=== PATIENT | female | born 1980 | race Caucasian/White ===

== ENCOUNTER 2017-11-29 16:07 | Emergency (ER) | payer SELFPAY ==
[2017-11-29 16:21] VITALS: BP 131/84; TEMP 98.3; O2SAT 98
--- NOTE | 2017-11-29 16:35 | ED.PDOC ---
History of Present Illness - General Chief Complaint: Skin/Abrasion/Tear Stated Complaint: itching, redness and swelling to skin Time Seen by Provider: 11/29/17 16:09 Source: patient Exam Limitations: no limitations - History of Present Illness Initial Comments: the patient is a 37-year-old female presenting to emergency room secondary to what appears to be a significant atopic dermatitis flare. She does have a history of asthma. Her asthma has been flaring a little bit but she appears to be well-controlled today. She reports that her skin symptoms have flared up over the last week. She reports that this happens 3 or 4 times a year and she does tend require oral steroids to suppress it. No blistering. No oral lesions. No chest pain. She is not taking any new medications. She has been taking hydroxyzine periodically. Timing/Duration: unsure, 1 week Severity: moderate Improving Factors: nothing Worsening Factors: nothing Associated Symptoms: cough Allergies/Adverse Reactions: Allergies Sulfa Antibiotics Allergy (Unknown, Verified 11/29/17 16:21) Penicillins Allergy (Verified 11/29/17 16:21) Home Medications: Ambulatory Orders hydrOXYzine HCl [Atarax] 25 mg PO TID PRN #15 tab 06/19/15 predniSONE 60 mg PO DAILY #15 tab 06/19/15 Montelukast [Singulair] 10 mg PO DAILY #14 tab 11/29/17 predniSONE [Prednisone] 40 mg PO DAILY #10 tab 11/29/17 Review of Systems - Review of Systems Constitutional: States: no symptoms reported, malaise EENTM: States: nose congestion - mild Respiratory: States: cough, short of breath - mild Cardiology: States: no symptoms reported Gastrointestinal/Abdominal: States: no symptoms reported Genitourinary: States: no symptoms reported Musculoskeletal: States: no symptoms reported Skin: States: see HPI Neurological: States: no symptoms reported Endocrine: States: no symptoms reported All other Systems: No Change from Baseline Past Medical History (General) - Patient Medical History Hx Asthma: Yes Hx Diabetes: No Surgical History: other - Vaccination History Hx Tetanus, Diphtheria Vaccination: Yes Hx Influenza Vaccination: No Hx Pneumococcal Vaccination: No - Social History Hx Tobacco Use: No Hx Alcohol Use: No Hx Substance Use: No Hx Substance Use Treatment: No Hx Depression: No - Female History Patient is a Female of Child Bearing Age (10 -59 yrs old): No Patient : No Family Medical History - Family History Mother Family History: No Known Living Status: Still Living Physical Exam - Physical Exam General Appearance: Alert, No apparent distress Eye Exam: bilateral normal Ears, Nose, Throat: hearing grossly normal, normal ENT inspection, normal pharynx, other - the patient does have significant seborrhea Neck: full range of motion, supple Respiratory: lungs clear, normal breath sounds, no respiratory distress, no accessory muscle use Cardiovascular/Chest: normal peripheral pulses, regular rate, rhythm, no edema Peripheral Pulses: radial,right: 2+, radial,left: 2+ Gastrointestinal/Abdominal: non tender, soft Rectal Exam: deferred Back Exam: no CVA tenderness, no vertebral tenderness Extremity: normal range of motion, non-tender, no pedal edema, normal capillary refill 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 She does have some areas of dermatographia. Comments: Vital Signs - 24 hr 11/29/17 16:13 Temperature 98.3 F Pulse Rate [ 77 pulse ox] Respiratory 20 Rate Blood Pressure 131/84 [Left Arm] O2 Sat by Pulse 98 Oximetry Progress - Progress Progress: 11/29/17 16:36 the patient is a 37-year-old female presenting with a significant atopic dermatitis flare with some background asthma. The patient is going to be placed on prednisone for the next 5 days as well as Singulair for the next 2 weeks. She can strip picker Zantac and take it twice daily for the next month. Additionally the patient can use as needed oral Benadryl. She needs to keep herself well hydrated. She can continue to use Eucerin cream to help prevent further irritation. Looking back at her lab work from 2014, she does have some significant eosinophilia. She does need follow-up with her primary care doctor later this week for reevaluation and consider additional workup for etiologies of eosinophilia as directed treatment to certain sources can reduce complications such as this. ER warnings were given for any significant worsening. Departure - Departure Clinical Impression: Asthma exacerbation Atopic dermatitis Qualifiers: Atopic dermatitis type: unspecified Qualified Code(s): L20.9 - Atopic dermatitis, unspecified Disposition: Discharge to Home or Self Care Condition: Fair Departure Forms: ED Discharge - Pt. Copy, Patient Portal Self Enrollment Instructions: DI for Atopic Dermatitis - Adult Diet: regular diet Activity: increase activity as tolerated Referrals: Mary Gardner NP [Primary Care Provider] - 1-5 Days Prescriptions: Montelukast [Singulair] 10 mg PO DAILY #14 tab predniSONE [Prednisone] 40 mg PO DAILY #10 tab Home Medications: Ambulatory Orders hydrOXYzine HCl [Atarax] 25 mg PO TID PRN #15 tab 06/19/15 predniSONE 60 mg PO DAILY #15 tab 06/19/15 Montelukast [Singulair] 10 mg PO DAILY #14 tab 11/29/17 predniSONE [Prednisone] 40 mg PO DAILY #10 tab 11/29/17 Additional Instructions: the patient is a 37-year-old female presenting with a significant atopic dermatitis flare with some background asthma. The patient is going to be placed on prednisone for the next 5 days as well as Singulair for the next 2 weeks. She can strip picker Zantac and take it twice daily for the next month. Additionally the patient can use as needed oral Benadryl. She needs to keep herself well hydrated. She can continue to use Eucerin cream to help prevent further irritation. Looking back at her lab work from 2015, she does have some significant eosinophilia. She does need follow-up with her primary care doctor later this week for reevaluation and consider additional workup for etiologies of eosinophilia as directed treatment to certain sources can reduce complications such as this. ER warnings were given for any significant worsening.
[2017-11-29] MEDS: diphenhydrAMINE HCL 25 MG CAP PO ONE (16:46)
[2017-11-29] MEDS: MONTELUKAST 10 MG TAB PO ONE (16:46)
[2017-11-29] MEDS: predniSONE 20 MG TAB PO ONE (16:47)
== END 2017-11-29 16:54 | disposition home or self-care (01) ==
LOC: ER 16:07
DX: L20.9 Atopic dermatitis, unspecified (principal); J45.901 Unspecified asthma with (acute) exacerbation
CPT/HCPCS: J7512; Q0163

== ENCOUNTER 2018-06-04 13:27 | Emergency (ER) | payer SELFPAY ==
[2018-06-04 13:49] VITALS: TEMP 98.2
--- NOTE | 2018-06-04 14:34 | CT ---
PROCEDURE: Abdoment/Pelvis w/o Contrast HISTORY: left flank pain Indication: Same as above Comparison: None Technique: CT of the abdomen and pelvis was done without intravenous contrast. Images were obtained from the lung base to the level of the pubic symphysis in axial plane, followed by orthogonal sagittal and coronal reconstruction. Oral contrast was not given for the study. This exam was performed according to our departmental dose-optimization program, which includes automated exposure control, adjustment of the mA and/or KV according to the patient's size and/or use of iterative reconstruction technique. FINDINGS: Images through the lung bases do not show any focal infiltrates or pleural effusions. There is left-sided hydroureteronephrosis to the level of 6 mm calculus seen in the distal left pelvic ureter, approximately 1 cm from the left ureterovesical junction. There is no nephrolithiasis on either side. There is no right-sided hydroureteronephrosis There is a small hiatal hernia. Calcifications in the left adrenal gland may be as a result of lipoma or granuloma The liver, gallbladder, pancreas, spleen and the right adrenal gland appear unremarkable, given the limitation of lack of intravenous contrast. The urinary bladder is unremarkable, without any evidence of wall thickening, calculi or filling defects. The small bowel appears unremarkable, without any evidence of small bowel obstruction or bowel wall thickening. There is no CT evidence of acute appendicitis, pericecal inflammatory change or ileocecal mesenteric adenitis. The ileocecal junction appears unremarkable. There is no CT evidence of acute colonic diverticulitis or colitis or large bowel obstruction. There is large bowel diverticulosis There is no pathological lymphadenopathy in the retroperitoneum or in the pelvic region. Multiple reactive lymph nodes are seen in the bilateral inguinal region There is no evidence of free fluid or free air in the abdomen or the pelvic region. There is no clinically significant abdominal aortic aneurysm. There is no clinically significant inguinal or ventral hernia. The visualized lumbar spine significant degenerative change at L2/L3 level. The paravertebral soft tissues are unremarkable. The remainder of the pelvic structures are unremarkable. IMPRESSION: There is left-sided hydroureteronephrosis to the level of 6 mm calculus seen in the distal left pelvic ureter, approximately 1 cm from the left ureterovesical junction. There is a small hiatal hernia. Calcifications in the left adrenal gland may be as a result of lipoma or granuloma Multiple reactive lymph nodes are seen in the bilateral inguinal region Electronically signed by: Chip Pride MD 06/04/2018 2:33 PM CDT Workstation: [id number]
[2018-06-04] MEDS ORDERED: ONDANSETRON ODT 8 MG TAB ONE (14:50)
[2018-06-04] MEDS ORDERED: ONDANSETRON ODT 8 MG TAB SL ONE (14:52)
[2018-06-04] MEDS ORDERED: KETOROLAC TROMETHAMINE INJ 30 MG/ML VIAL IM ONE (15:04)
[2018-06-04] MEDS ORDERED: HYDROmorphone HCL INJ 2 MG/ML VIAL IM ONE (15:04)
--- NOTE | 2018-06-04 15:09 | ED.PDOC ---
History of Present Illness - General Chief Complaint: Problem Stated Complaint: left flank pain Time Seen by Provider: 06/04/18 13:43 Source: patient Exam Limitations: no limitations - History of Present Illness Initial Comments: Left flank pain started yesterday similar to previous stone pain. No gross hematuria, fever, dysuria, vaginal discharge. LMP 05/28 not 04/27. Timing/Duration: yesterday Quality: severe Onset Location: left flank Radiation: back Activites at Onset: none Prior abdominal problems: similar symptoms Improving Factors: nothing Worsening Factors: nothing Associated Symptoms: nausea/vomiting Allergies/Adverse Reactions: Allergies Sulfa Antibiotics Allergy (Unknown, Verified 11/29/17 16:21) Penicillins Allergy (Verified 11/29/17 16:21) Home Medications: Ambulatory Orders Acetaminophen W/ Codeine [Tylenol w/Codeine 300-30 mg] 1 tab PO Q4HR #20 tab Ciprofloxacin [Cipro] 250 mg PO Q12H 7 Days #14 tablet 05/11/18 Promethazine Tab [Phenergan Tablet] 25 mg PO .Q4H PRN #10 tab 05/11/18 Tamsulosin HCl [Flomax] 0.4 mg PO DAILY #5 cap 05/11/18 Acetamin W/Cod #3 Tab [Tylenol w/CODEINE #3] 1 ea PO TID #14 tab 05/15/18 Tamsulosin [Flomax] 0.4 mg PO QDPC #7 cap 05/15/18 Acetaminophen W/ Codeine [Tylenol W/ CODEINE #3] 2 ea PO Q8HRS PRN 5 Days #15 06/04/18 Review of Systems - Review of Systems Constitutional: States: no symptoms reported, see HPI Respiratory: States: no symptoms reported Cardiology: States: no symptoms reported Gastrointestinal/Abdominal: States: see HPI Genitourinary: States: see HPI Musculoskeletal: States: see HPI, back pain Skin: States: no symptoms reported Neurological: States: headache Past Medical History (General) - Patient Medical History Hx Stroke: Yes Hx Asthma: Yes Hx Congestive Heart Failure: No Hx Diabetes: No - Vaccination History Hx Tetanus, Diphtheria Vaccination: Yes Hx Influenza Vaccination: No Hx Pneumococcal Vaccination: No - Social History Hx Tobacco Use: No Hx Alcohol Use: No Hx Substance Use: No Hx Substance Use Treatment: No Hx Depression: No Hx Physical Abuse: No Hx Emotional Abuse: No - Female History Patient is a Female of Child Bearing Age (10 -59 yrs old): Yes Hx Last Menstrual Period: 04/27/18 - [id number] Patient : No Family Medical History - Family History Mother Family History: No Known Living Status: Still Living Physical Exam - Physical Exam General Appearance: Alert, No apparent distress, Other - uncomfortable Eyes, Ears, Nose, Throat Exam: normal ENT inspection Neck: supple, normal inspection Cardiovascular/Respiratory: no respiratory distress Gastrointestinal/Abdominal: non tender, soft, no organomegaly Back Exam: normal inspection, no vertebral tenderness, CVA tenderness (L) Extremity: normal inspection Neurologic: alert, normal mood/affect, oriented x 3 Skin Exam: normal color, warm/dry Progress - Progress Progress: 06/05/18 03:12 Even though large stone appeared close to the UVJ. No signs of complicated stone. Symptomatic therapy & f/u with her PCP. Has not seen a urologist for a previous stone. - EKG/XRAY/CT CT Ordered: Yes - 6 mm stone distal left ureter Departure - Departure Clinical Impression: Ureteral calculus, left Time of Disposition: 15:06 Disposition: Discharge to Home or Self Care Condition: Good Departure Forms: ED Discharge - Pt. Copy, Patient Portal Self Enrollment Instructions: DI for Kidney Stones Referrals: Mary Gardner NP [Primary Care Provider] - 06/06/18 Prescriptions: Acetaminophen W/ Codeine [Tylenol W/ CODEINE #3] 2 ea PO Q8HRS PRN 5 Days #15 PRN Reason: Moderate Pain Home Medications: Ambulatory Orders Acetaminophen W/ Codeine [Tylenol w/Codeine 300-30 mg] 1 tab PO Q4HR #20 tab Ciprofloxacin [Cipro] 250 mg PO Q12H 7 Days #14 tablet 05/11/18 Promethazine Tab [Phenergan Tablet] 25 mg PO .Q4H PRN #10 tab 05/11/18 Tamsulosin HCl [Flomax] 0.4 mg PO DAILY #5 cap 05/11/18 Acetamin W/Cod #3 Tab [Tylenol w/CODEINE #3] 1 ea PO TID #14 tab 05/15/18 Tamsulosin [Flomax] 0.4 mg PO QDPC #7 cap 05/15/18 Acetaminophen W/ Codeine [Tylenol W/ CODEINE #3] 2 ea PO Q8HRS PRN 5 Days #15 06/04/18
[2018-06-04 15:44] VITALS: BP 148/100; O2SAT 96
== END 2018-06-04 15:45 | disposition home or self-care (01) ==
LOC: ER 13:27
DX: N13.2 Hydronephrosis with renal and ureteral calculous obstruction (principal); J45.909 Unspecified asthma, uncomplicated; Z88.0 Allergy status to penicillin; Z88.2 Allergy status to sulfonamides
CPT/HCPCS: 74176; J1170; J1885

== ENCOUNTER 2018-06-11 17:49 | Emergency (ER) | payer SELFPAY ==
--- NOTE | 2018-06-11 18:05 | ED.PDOC ---
History of Present Illness - General Chief Complaint: Problem Time Seen by Provider: 06/11/18 18:02 Source: patient, RN notes reviewed, Vital Signs reviewed Additional Information: 37 YEAR OLD COMPLAINTS OF SEVER PAIN IN THE LEFT FLANK RADIATING TO THE LEFT GROIN SHE HAS KNOWN HISTORY OF KIDNEY STONES IN FACT SHE WAS SEEN HERE FOR RENAL COLIC ON THE SAME SIDE SHE HAS NO FEVER CHILLS NO HEMATURIA NO HISTOR OF HYPERPARATHYROIDISM - History of Present Illness Timing/Duration: 24 hours Severity: moderate Improving Factors: nothing Worsening Factors: nothing Associated Symptoms: denies symptoms Allergies/Adverse Reactions: Allergies Sulfa Antibiotics Allergy (Unknown, Verified 11/29/17 16:21) Penicillins Allergy (Verified 11/29/17 16:21) Home Medications: Ambulatory Orders Acetaminophen W/ Codeine [Tylenol w/Codeine 300-30 mg] 1 tab PO Q4HR #20 tab Ciprofloxacin [Cipro] 250 mg PO Q12H 7 Days #14 tablet 05/11/18 Promethazine Tab [Phenergan Tablet] 25 mg PO .Q4H PRN #10 tab 05/11/18 Tamsulosin HCl [Flomax] 0.4 mg PO DAILY #5 cap 05/11/18 Acetamin W/Cod #3 Tab [Tylenol w/CODEINE #3] 1 ea PO TID #14 tab 05/15/18 Tamsulosin [Flomax] 0.4 mg PO QDPC #7 cap 05/15/18 Acetaminophen W/ Codeine [Tylenol W/ CODEINE #3] 2 ea PO Q8HRS PRN 5 Days #15 06/04/18 Acetamin W/Cod #3 Tab [Tylenol w/CODEINE #3] 1 ea PO Q6HR PRN #40 tab 06/11/18 Sulfa/Trimeth 800/160 (Ds) Tab [Bactrim DS Tab] 1 ea PO Q12HR #20 tab 06/11/18 Review of Systems - Review of Systems Constitutional: States: no symptoms reported EENTM: States: no symptoms reported Respiratory: States: no symptoms reported Cardiology: States: no symptoms reported Gastrointestinal/Abdominal: States: see HPI Genitourinary: States: see HPI, frequency Musculoskeletal: States: no symptoms reported Skin: States: rash Neurological: States: no symptoms reported Endocrine: States: no symptoms reported Hematologic/Lymphatic: States: no symptoms reported Past Medical History (General) - Patient Medical History Hx Stroke: Yes Hx Asthma: Yes Hx Congestive Heart Failure: No Hx Diabetes: No - Vaccination History Hx Tetanus, Diphtheria Vaccination: Yes Hx Influenza Vaccination: No Hx Pneumococcal Vaccination: No - Social History Hx Tobacco Use: No Hx Alcohol Use: No Hx Substance Use: No Hx Substance Use Treatment: No Hx Depression: No Hx Physical Abuse: No Hx Emotional Abuse: No - Female History Hx Last Menstrual Period: 04/27/18 - [id number] Patient : No Family Medical History - Family History Mother Family History: No Known Living Status: Still Living Physical Exam - Physical Exam General Appearance: Alert, Obvious distress Eye Exam: bilateral normal Ears, Nose, Throat: hearing grossly normal, normal ENT inspection, normal pharynx Neck: non-tender, full range of motion, supple Respiratory: chest non-tender, lungs clear, normal breath sounds, no respiratory distress Cardiovascular/Chest: normal peripheral pulses, regular rate, rhythm, no edema, no gallop Gastrointestinal/Abdominal: normal bowel sounds, non tender, soft, no organomegaly Back Exam: normal inspection, no CVA tenderness, no vertebral tenderness Skin Exam: normal color, warm/dry Progress - Results/Orders Results/Orders: Laboratory Tests 06/11/18 06/11/18 06/11/18 18:31 19:46 19:46 WBC 14.8 H RBC 4.77 Hgb 12.7 Hct 39.4 MCV 82.7 MCH 26.7 L MCHC 32.3 L RDW 15.4 H Plt Count 272 MPV 8.5 Absolute Neuts (auto) 8.80 H Absolute Lymphs (auto) 2.70 Absolute Monos (auto) 1.30 H Absolute Eos (auto) 1.90 H Absolute Basos (auto) 0.10 Neutrophils % 59.1 Lymphocytes % 18.5 L Monocytes % 8.8 Eosinophils % 13.1 H Basophils % 0.5 Sodium 135 Potassium 3.6 Chloride 100 L Carbon Dioxide 26 Anion Gap 12.6 BUN 17 Creatinine 1.27 BUN/Creatinine Ratio 13.4 Random Glucose 89 Serum Osmolality 271.1 L Calcium 9.4 Total Bilirubin 0.2 AST 19 ALT 18 Alkaline Phosphatase 85 Serum Total Protein 7.5 Albumin 4.3 Globulin 3.2 Albumin/Globulin Ratio 1.3 Urine Color Yellow Urine Appearance Clear Urine pH 5.5 Ur Specific [place] 1.020 Urine Protein Negative Urine Glucose (UA) Negative Urine Ketones Negative Urine Blood Small H Urine Nitrite Negative Urine Bilirubin Negative Urine Urobilinogen 0.2 Ur Leukocyte Esterase Negative Urine RBC 1-3 Urine WBC 0 Ur Epithelial Cells 30-40 Urine Bacteria Rare Departure - Departure Clinical Impression: Renal colic on left side Time of Disposition: 20:21 Disposition: Discharge to Home or Self Care Condition: Good Departure Forms: ED Discharge - Pt. Copy, Patient Portal Self Enrollment Diet: resume usual diet Referrals: Mary Gardner NP [Primary Care Provider] - 1-2 Weeks Prescriptions: Acetamin W/Cod #3 Tab [Tylenol w/CODEINE #3] 1 ea PO Q6HR PRN #40 tab PRN Reason: Mild To Moderate Pain Sulfa/Trimeth 800/160 (Ds) Tab [Bactrim DS Tab] 1 ea PO Q12HR #20 tab Home Medications: Ambulatory Orders Acetaminophen W/ Codeine [Tylenol w/Codeine 300-30 mg] 1 tab PO Q4HR #20 tab Ciprofloxacin [Cipro] 250 mg PO Q12H 7 Days #14 tablet 05/11/18 Promethazine Tab [Phenergan Tablet] 25 mg PO .Q4H PRN #10 tab 05/11/18 Tamsulosin HCl [Flomax] 0.4 mg PO DAILY #5 cap 05/11/18 Acetamin W/Cod #3 Tab [Tylenol w/CODEINE #3] 1 ea PO TID #14 tab 05/15/18 Tamsulosin [Flomax] 0.4 mg PO QDPC #7 cap 05/15/18 Acetaminophen W/ Codeine [Tylenol W/ CODEINE #3] 2 ea PO Q8HRS PRN 5 Days #15 06/04/18 Acetamin W/Cod #3 Tab [Tylenol w/CODEINE #3] 1 ea PO Q6HR PRN #40 tab 06/11/18 Sulfa/Trimeth 800/160 (Ds) Tab [Bactrim DS Tab] 1 ea PO Q12HR #20 tab 06/11/18
[2018-06-11] MEDS ORDERED: KETOROLAC TROMETHAMINE INJ 60 MG/2 ML VIAL IM ONE (18:06)
[2018-06-11] MEDS ORDERED: PROMETHAZINE HCL INJ 25 MG/ML VIAL IM ONE (18:06)
[2018-06-11 18:17] VITALS: O2SAT 99
--- NOTE | 2018-06-11 19:18 | CT ---
EXAM DESCRIPTION: Abdoment/Pelvis w/o Contrast CLINICAL HISTORY: flank pain COMPARISON: None Available. TECHNIQUE: Contiguous axial images of the abdomen and pelvis were obtained followed by reconstruction images. This exam was performed according to our departmental dose-optimization program, which includes automated exposure control, adjustment of the mA and/or kV according to patient size and/or use of iterative reconstruction technique. FINDINGS: There is a 3 mm nonobstructive right renal stone. No right ureteral stone. 4 mm left UVJ stone is present with mild dilatation of the left ureter throughout its length. The left renal stone. Small hiatal hernia is seen. There is colonic diverticulosis without definite diverticulitis. Margins of the pancreas are poorly defined. Significance of this is unclear. Mild inflammation of the pancreas is not entirely excluded. Right adnexal cyst measures 46 mm. There is a calcified heterogeneous mass lesion of the left adrenal gland measuring approximately 12 mm diameter, nonspecific. No other acute abnormality. The liver, spleen, pancreas and kidneys are otherwise within normal limits. There is no hydronephrosis or other renal stones. The gallbladder is unremarkable by CT criteria. Adrenal glands are within normal limits. Aorta is of normal caliber and tapering. There is no free fluid in the abdomen or pelvis. There is no bowel obstruction. There is no stranding of the mesenteric fat to suggest an inflammatory response. The appendix is within normal limits. There is no pericecal inflammation. IMPRESSION: Left UVJ stone. 4.6 cm probably benign ovarian cyst Recommend follow-up pelvic US in 6-12 weeks. Reference: J Am Jaylen Radiol 2013;10:[id number] Nonspecific left adrenal heterogeneous calcified mass. Electronically signed by: Efren Vidal 06/11/2018 7:17 PM CDT
[2018-06-11] MEDS ORDERED: fentaNYL CITRATE INJ 50 MCG/ML AMP IV ONE (19:34)
[2018-06-11] MEDS ORDERED: ACETAMINOPHEN W/COD #3 TAB (ER Disp) PO ONE (20:19)
[2018-06-11 20:40] VITALS: BP 127/80; TEMP 99
== END 2018-06-11 20:44 | disposition home or self-care (01) ==
LOC: ER 17:49
DX: N20.0 Calculus of kidney (principal); K57.30 Diverticulosis of large intestine without perforation or abscess without bleeding; K44.9 Diaphragmatic hernia without obstruction or gangrene; J45.909 Unspecified asthma, uncomplicated; Z87.442 Personal history of urinary calculi; Z79.899 Other long term (current) drug therapy; Z86.73 Personal history of transient ischemic attack (TIA), and cerebral infarction without residual deficits
CPT/HCPCS: 74176; 80053; 81001; 85025; J1885; J2550; J3010

== ENCOUNTER 2018-08-01 19:23 | Emergency (ER) | payer SELFPAY ==
[2018-08-01] MEDS ORDERED: methylPREDNISolone SODIUM SUC 125 MG/2 ML VIAL IM ONE (19:54)
[2018-08-01] MEDS ORDERED: hydrOXYzine HCl 25 MG TAB PO ONE (19:55)
--- NOTE | 2018-08-01 19:58 | ED.PDOC ---
History of Present Illness - General Chief Complaint: Skin/Abrasion/Tear Stated Complaint: eczema flare up Time Seen by Provider: 08/01/18 19:51 Source: patient Exam Limitations: no limitations - History of Present Illness Timing/Duration: yesterday Severity: severe Location: generalized Improving Factors: nothing Worsening Factors: nothing Associated Symptoms: itching, rash Allergies/Adverse Reactions: Allergies Sulfa Antibiotics Allergy (Unknown, Verified 11/29/17 16:21) Penicillins Allergy (Verified 11/29/17 16:21) Home Medications: Ambulatory Orders Albuterol Inhaler [Ventolin Hfa Inhaler] 1 puff INH PRN 08/01/18 hydrOXYzine HCl [Atarax] 25 mg PO TID #30 tab 08/01/18 predniSONE 20 mg PO BID #12 tab 08/01/18 Review of Systems - Review of Systems Constitutional: Denies: chills, fever EENTM: States: no symptoms reported Respiratory: Denies: cough, short of breath Cardiology: Denies: chest pain Gastrointestinal/Abdominal: Denies: abdominal pain, nausea Skin: States: change in color, dryness, rash Past Medical History (General) - Patient Medical History Hx Stroke: Yes Hx Asthma: Yes Hx Congestive Heart Failure: No Hx Diabetes: No - Vaccination History Hx Tetanus, Diphtheria Vaccination: Yes Hx Influenza Vaccination: No Hx Pneumococcal Vaccination: No - Social History Hx Tobacco Use: No Hx Alcohol Use: No Hx Substance Use: No Hx Substance Use Treatment: No Hx Depression: No Hx Physical Abuse: No Hx Emotional Abuse: No - Female History Hx Last Menstrual Period: 04/27/18 - [id number] Patient : No Family Medical History - Family History Mother Family History: No Known Living Status: Still Living Physical Exam - Physical Exam General Appearance: Alert, Anxious Eyes, Ears, Nose, Throat Exam: PERRL/EOMI Skin Problem Location: generalized Skin Character: erythema, rash, swelling, other - excoriations Lymphatic: no adenopathy Departure - Departure Clinical Impression: Eczema Qualifiers: Eczema type: unspecified Qualified Code(s): L30.9 - Dermatitis, unspecified Disposition: Discharge to Home or Self Care Departure Forms: ED Discharge - Pt. Copy, Patient Portal Self Enrollment Referrals: Mary Gardner NP [Primary Care Provider] - 1-2 Weeks Prescriptions: hydrOXYzine HCl [Atarax] 25 mg PO TID #30 tab predniSONE 20 mg PO BID #12 tab Home Medications: Ambulatory Orders Albuterol Inhaler [Ventolin Hfa Inhaler] 1 puff INH PRN 08/01/18 hydrOXYzine HCl [Atarax] 25 mg PO TID #30 tab 08/01/18 predniSONE 20 mg PO BID #12 tab 08/01/18
[2018-08-01 20:37] VITALS: BP 150/81; TEMP 98.5; O2SAT 98
== END 2018-08-01 20:25 | disposition home or self-care (01) ==
LOC: ER 19:23
DX: L30.9 Dermatitis, unspecified (principal); J45.909 Unspecified asthma, uncomplicated; Z86.73 Personal history of transient ischemic attack (TIA), and cerebral infarction without residual deficits; Z88.0 Allergy status to penicillin; Z88.2 Allergy status to sulfonamides

== ENCOUNTER → 2018-08-25 | Outpatient (CLI) | payer OTHER | LOC: YCFC.O 16:41 | PROVIDERS: ATTEND Nurse Practitioner Family | DX: Z00.00 Encounter for general adult medical examination without abnormal findings (principal) ==

== ENCOUNTER 2018-09-06 16:31 | Emergency (ER) | payer SELFPAY ==
[2018-09-06 17:16] VITALS: BP 146/91; TEMP 97.9; O2SAT 99
[2018-09-06] MEDS ORDERED: methylPREDNISolone SODIUM SUC 125 MG/2 ML VIAL IM ONE (17:20)
--- NOTE | 2018-09-06 17:27 | ED.PDOC ---
History of Present Illness - General Chief Complaint: Skin/Abrasion/Tear Stated Complaint: RASH Time Seen by Provider: 09/06/18 16:48 Source: patient Exam Limitations: no limitations - History of Present Illness Initial Comments: PT PRESENTS TO THE ED WITH COMPLAINT OF DIFFUSE ITCHY RASH. PT BELIEVES RASH IS DUE TO A FLARE OF ECZEMA HOWEVER SHE WANTED TO MAKE SURE IT WASNT SHINGLES. PT HAS A HISTORY OF SEVERE ECZEMA AND ASTHMA. Timing/Duration: yesterday Severity: severe Location: face, torso, extremities, generalized Improving Factors: medication Worsening Factors: nothing Associated Symptoms: itching Allergies/Adverse Reactions: Allergies Sulfa Antibiotics Allergy (Unknown, Verified 11/29/17 16:21) Penicillins Allergy (Verified 11/29/17 16:21) Home Medications: Ambulatory Orders Albuterol Inhaler [Ventolin Hfa Inhaler] 1 puff INH PRN 08/01/18 hydrOXYzine HCl [Atarax] 25 mg PO TID #30 tab 08/01/18 predniSONE 20 mg PO BID #12 tab 08/01/18 Methylprednisolone [Medrol Dose Bairon] 4 mg PO DAILY #1 pack 09/06/18 Mometasone Furoate [Elocon] 1 ea TOP DAILY PRN #30 gm 09/06/18 Review of Systems - Review of Systems Constitutional: Denies: chills, fever EENTM: Denies: nose congestion, throat swelling Respiratory: Denies: cough, short of breath Cardiology: Denies: chest pain, palpitations Gastrointestinal/Abdominal: Denies: diarrhea, nausea, vomiting Past Medical History (General) - Patient Medical History Hx Stroke: No Hx Asthma: Yes Hx Congestive Heart Failure: No Hx Diabetes: No Hx Other - free text: ECZEMA - Vaccination History Hx Tetanus, Diphtheria Vaccination: Yes Hx Influenza Vaccination: No Hx Pneumococcal Vaccination: No - Social History Hx Tobacco Use: No Hx Alcohol Use: No Hx Substance Use: No Hx Substance Use Treatment: No Hx Depression: No Hx Physical Abuse: No Hx Emotional Abuse: No - Female History Hx Last Menstrual Period: 04/27/18 - [id number] Patient : No Family Medical History - Family History Mother Family History: No Known Living Status: Still Living Physical Exam - Physical Exam General Appearance: Alert, Comfortable, No apparent distress, Well Groomed, Well Hydrated Eyes, Ears, Nose, Throat Exam: normal ENT inspection Neck: normal inspection Cardiovascular/Chest: regular rate, rhythm, no murmur Respiratory: lungs clear, normal breath sounds, no respiratory distress Gastrointestinal/Abdominal: non tender, soft Back Exam: no CVA tenderness Extremity: non-tender Neurologic: alert, normal mood/affect, oriented x 3 Skin Exam: warm/dry, other - DIFFUSE ERYTHEMATOUS MACULAR, PAPULAR LESIONS ON TRUNK, FACE, AND EXTREMITIES Skin Problem Location: generalized, face, upper extremities, torso, lower extremities Skin Character: blanching, erythema, macules, papules Lymphatic: no adenopathy Departure - Departure Clinical Impression: Acute eczema Time of Disposition: 17:32 Disposition: Discharge to Home or Self Care Condition: Fair Departure Forms: ED Discharge - Pt. Copy, Patient Portal Self Enrollment Instructions: Eczema (Atopic Dermatitis) (DC) Referrals: Mary Gardner [employer] OFFICER [Primary Care Provider] - 1-5 Days Prescriptions: Methylprednisolone [Medrol Dose Bairon] 4 mg PO DAILY #1 pack Mometasone Furoate [Elocon] 1 ea TOP DAILY PRN #30 gm PRN Reason: Rash Home Medications: Ambulatory Orders Albuterol Inhaler [Ventolin Hfa Inhaler] 1 puff INH PRN 08/01/18 hydrOXYzine HCl [Atarax] 25 mg PO TID #30 tab 08/01/18 predniSONE 20 mg PO BID #12 tab 08/01/18 Methylprednisolone [Medrol Dose Bairon] 4 mg PO DAILY #1 pack 09/06/18 Mometasone Furoate [Elocon] 1 ea TOP DAILY PRN #30 gm 09/06/18
== END 2018-09-06 17:40 | disposition home or self-care (01) ==
LOC: ER 16:31
DX: L30.9 Dermatitis, unspecified (principal); J45.909 Unspecified asthma, uncomplicated; Z79.899 Other long term (current) drug therapy; Z88.0 Allergy status to penicillin; Z88.2 Allergy status to sulfonamides

== ENCOUNTER 2018-10-31 20:53 | Emergency (ER) | payer SELFPAY ==
[2018-10-31 21:20] VITALS: BP 157/93; TEMP 98.5
[2018-10-31] MEDS ORDERED: CETIRIZINE HCL 10 MG TAB PO ONE (21:27)
[2018-10-31] MEDS ORDERED: predniSONE 20 MG TAB PO ONE (21:27)
[2018-10-31] MEDS ORDERED: MONTELUKAST 10 MG TAB PO ONE (21:27)
--- NOTE | 2018-10-31 21:31 | ED.PDOC ---
History of Present Illness - General Chief Complaint: Skin/Abrasion/Tear Stated Complaint: eczema flairup Time Seen by Provider: 10/31/18 20:55 Source: patient Exam Limitations: no limitations - History of Present Illness Initial Comments: the patient is a 38-year-old female presenting to the emergency room secondary to a flareup of her chronic skin condition that is at least somewhat like eczema. She normally controlled with hydroxyzine but is out of that. She has had to take steroids on multiple occasions in the past. She is currently undergoing testing for additional diagnostic purposes with her primary care doctor. No fevers. No blisters. She does have diffuse erythema and pruritus. No pustules. No oral lesions. She does have some hair loss. Skin is very thin and somewhat paperlike. Skin is very red. Timing/Duration: 1 week Severity: moderate Improving Factors: nothing Worsening Factors: nothing Associated Symptoms: denies symptoms Allergies/Adverse Reactions: Allergies Sulfa Antibiotics Allergy (Unknown, Verified 11/29/17 16:21) Penicillins Allergy (Verified 11/29/17 16:21) Home Medications: Ambulatory Orders Albuterol Inhaler [Ventolin Hfa Inhaler] 1 puff INH PRN PRN 08/01/18 hydrOXYzine HCl [Atarax] 25 mg PO TID #30 tab 08/01/18 predniSONE [Prednisone] 20 mg PO DAILY #7 tab 10/31/18 Review of Systems - Review of Systems Constitutional: States: no symptoms reported EENTM: States: no symptoms reported Respiratory: States: no symptoms reported Cardiology: States: no symptoms reported Gastrointestinal/Abdominal: States: no symptoms reported Genitourinary: States: no symptoms reported Musculoskeletal: States: no symptoms reported Skin: States: see HPI Neurological: States: no symptoms reported Endocrine: States: no symptoms reported All other Systems: No Change from Baseline Past Medical History (General) - Patient Medical History Hx Stroke: No Hx Asthma: Yes Hx Congestive Heart Failure: No Hx Diabetes: No Hx MRSA: No - Vaccination History Hx Tetanus, Diphtheria Vaccination: Yes Hx Influenza Vaccination: No Hx Pneumococcal Vaccination: No - Social History Hx Tobacco Use: No Hx Alcohol Use: No Hx Substance Use: No Hx Substance Use Treatment: No Hx Depression: No Hx Physical Abuse: No Hx Emotional Abuse: No - Female History Hx Last Menstrual Period: 04/27/18 - [id number] Patient : No - Triage Comment ED Triage Comment: Eczema flair up Family Medical History - Family History Mother Family History: No Known Living Status: Still Living Physical Exam - Physical Exam General Appearance: Alert, Comfortable, No apparent distress Eye Exam: bilateral normal Ears, Nose, Throat: hearing grossly normal, normal pharynx Neck: full range of motion, supple Respiratory: lungs clear, normal breath sounds, no respiratory distress, no accessory muscle use Cardiovascular/Chest: normal peripheral pulses, regular rate, rhythm, no edema Peripheral Pulses: radial,right: 2+, radial,left: 2+, dorsalis pedis,right: 2+, dorsalis pedis,left: 2+ Gastrointestinal/Abdominal: non tender, soft Rectal Exam: deferred Back Exam: no CVA tenderness, no vertebral tenderness Extremity: normal range of motion, non-tender, no pedal edema, normal capillary refill Neurologic: server administrator II-XII nml as tested, alert, normal mood/affect, oriented x 3 Skin Exam: rash - see history of present illness Comments: Vital Signs - 24 hr 10/31/18 21:18 Temperature 98.5 F Pulse Rate [ 76 Left] Respiratory 16 Rate Blood Pressure 157/93 [Left Arm] Progress - Progress Progress: 10/31/18 21:30 the patient is a 38-year-old female presenting to the emergency room with a flareup of her chronic skin disease. The patient has historically responded well to steroids and we will go down that path again. She'll be placed on prednisone 20 mg daily for the next week. She can use [id number] cetirizine 10 mg twice daily as well. She needs to keep herself well hydrated and I would recommend a hydrating lotion such as Cetaphil 2 to 3 times daily to the irritated areas. Reducing sunlight exposure may help as well. Keep follow-up with primary care doctor for additional testing for diagnostic purposes. ER warnings were given. No asthma flare at this time. Departure - Departure Clinical Impression: Urticaria Disposition: Discharge to Home or Self Care Condition: Fair Departure Forms: ED Discharge - Pt. Copy, Patient Portal Self Enrollment Instructions: Samira Diet: regular diet Activity: increase activity as tolerated Referrals: Mary Gardner PORTER BATH [Primary Care Provider] - 1-2 Weeks Prescriptions: predniSONE [Prednisone] 20 mg PO DAILY #7 tab Home Medications: Ambulatory Orders Albuterol Inhaler [Ventolin Hfa Inhaler] 1 puff INH PRN PRN 08/01/18 hydrOXYzine HCl [Atarax] 25 mg PO TID #30 tab 08/01/18 predniSONE [Prednisone] 20 mg PO DAILY #7 tab 10/31/18 Additional Instructions: the patient is a 38-year-old female presenting to the emergency room with a flareup of her chronic skin disease. The patient has historically responded well to steroids and we will go down that path again. She'll be placed on prednisone 20 mg daily for the next week. She can use [id number] cetirizine 10 mg twice daily as well. She needs to keep herself well hydrated and I would recommend a hydrating lotion such as Cetaphil 2 to 3 times daily to the irritated areas. Reducing sunlight exposure may help as well. Keep follow-up with primary care doctor for additional testing for diagnostic purposes. ER warnings were given. No asthma flare at this time.
[2018-10-31 21:46] VITALS: O2SAT 99
== END 2018-10-31 21:46 | disposition home or self-care (01) ==
LOC: ER 20:53
DX: L50.9 Urticaria, unspecified (principal); J45.909 Unspecified asthma, uncomplicated; Z88.0 Allergy status to penicillin; Z88.2 Allergy status to sulfonamides